=== PATIENT | female | born 1990 | race Caucasian/White ===

== ENCOUNTER 2017-10-02 18:52 | Emergency (ER) | payer SELFPAY ==
[~2017-10-02] VITALS: Ht 170.2 cm; Wt 66.8 kg
[2017-10-02 18:58] VITALS: BP 132/65; PULSE 76; RESP 18; TEMP 98.8; O2SAT 97
[2017-10-02] MEDS ORDERED: NABU1TAB37 PO (19:26)
[2017-10-02] MEDS ORDERED: CYCL10TA PO (19:26)
--- NOTE | 2017-10-02 19:48 | PD ---
HPI . Jaw pain Chief Complaint: Oral / Dental Pain or Problem Time Seen by Provider: 19:11 Travel History International Travel<30 days: No Contact w/Intl Traveler<30days: No Traveled to known affect area: No History of Present Illness HPI This patient presents with chief complaint of bilateral jaw pain. Onset today. She describes the discomfort as a spasm and rates it at 6/10. Pain is exacerbated by opening and closing her mouth. She reports no treatment prior to arrival. She states that she has bad teeth but does not feel that the teeth of the source of the pain today. PFSH Past Medical History Medical History: Denies Significant Hx Diminished Hearing: No Tetanus Vaccination: < 5 Years Influenza Vaccination: No ?: Unknown LMP: 05 10 18 Past Surgical History Section: Yes Social History Alcohol Use: No Tobacco Use: No Substance Use: No Allergies-Medications (Allergen,Severity, Reaction): Coded Allergies: No Known Allergies (Verified Allergy, Unknown, 10/02/17) Reported Meds & Prescriptions Reported Meds & Active Scripts Active Flexeril (Cyclobenzaprine HCl) 10 Mg Tab 10 Mg PO TID Nabumetone 500 Mg Tab 500 Mg PO BID Review of Systems Except as stated in HPI: all other systems reviewed are Neg Physical Exam Narrative GENERAL: Awake and alert and in no acute distress. SKIN: Warm and dry. HEAD: Normocephalic/atraumatic. EYES: Pupils are equal. Extraocular movements are intact. ENT: She has tenderness to palpation of her masseter muscles bilaterally. She does not have TMJ tenderness. There is no facial swelling or redness of the overlying skin. NECK: Normal range of motion. No lymphadenopathy. CARDIOVASCULAR: Regular rate and rhythm. RESPIRATORY: Nonlabored respirations. MUSCULOSKELETAL: Atraumatic. NEUROLOGICAL: Nonfocal. PSYCHIATRIC: Appropriate mood and affect. Data Data Last Documented VS Vital Signs Date Time Temp Pulse Resp B/P (MAP) Pulse Ox O2 Delivery O2 Flow Rate FiO2 10/02/17 18:58 98.8 76 18 132/65 (87) 97 Orders Orders Ed Discharge Order (10/02/17 19:26) [facility] Medical Decision Making Medical Screen Exam Complete: Yes Emergency Medical Condition: Yes Differential Diagnosis Differential diagnosis includes but is not limited to TMJ syndrome, dental pain , dental abscess Narrative Course This patient presents with bilateral jaw pain. She is tender over the masseter muscles bilaterally. Pain is exacerbated by opening and closing the mouth. She does not have TMJ tenderness. Diagnosis Primary Impression: Masseter muscle spasm Patient Instructions: General Instructions, Muscle Spasm (ED) Departure Forms: Tests/Procedures Additional Instructions: Warm compresses or a heating pad to your jaw. Scripts Cyclobenzaprine (Flexeril) 10 Mg Tab 10 MG PO TID for Muscle Spasm, #90 TAB 0 Refills Prov: Addis Valle MD 10/02/17 Nabumetone (Nabumetone) 500 Mg Tab 500 MG PO BID for Pain-Inflammation, #60 TAB 0 Refills Prov: Addis Valle MD 10/02/17 Disposition: 01 DISCHARGE HOME Condition: Stable Addis Valle MD October 02, 2017 19:48
== END 2017-10-02 19:55 | disposition home or self-care (01) ==
LOC: PHEFT 18:52
DX: M62.838 Other muscle spasm (principal); R68.84 Jaw pain
CPT/HCPCS: 99283